=== PATIENT | female | born 1955 | race Caucasian/White ===

== ENCOUNTER 2021-03-08 14:45 | Emergency (ER) | payer OTHER ==
[~2021-03-08] VITALS: Ht 160 cm; Wt 60.8 kg
[~2021-03-08 14:45] MED LIST: Dhea Tablet1 EACH PO; ESTRIOL; Evening Primro500 M1 PO; GLUC500 PO; NAPR220 PO; VITAMIN D35000 UNIT PO; [UNRECOGNIZED DRUG - MIXTURE]; [UNRECOGNIZED DRUG - OTHER]; [UNRECOGNIZED DRUG - OTHER] PO
[2021-03-08] MEDS ORDERED: Norco 5-325 Ta1 EACH PO (17:25)
== END 2021-03-08 17:38 | disposition home or self-care (01) ==
LOC: ER 14:45
DX: S82.841A Displaced bimalleolar fracture of right lower leg, initial encounter for closed fracture (principal); Z88.7 Allergy status to serum and vaccine; Z79.899 Other long term (current) drug therapy; W19.XXXA Unspecified fall, initial encounter
CPT/HCPCS: 27810; 73560-RT; 73610; 96374; 96375; 99283-25; J2270; J2405; J3010

== ENCOUNTER 2021-03-17 06:26 | Day surgery (SDC) | payer OTHER ==
[~2021-03-17] VITALS: Ht 160 cm; Wt 61.3 kg
[~2021-03-17 06:26] MED LIST changes: +Norco 5-325 Ta1 EACH PO
[2021-03-17] MEDS ORDERED: LEVSOD25 PO (07:08)
== END 2021-03-17 10:23 | disposition home or self-care (01) ==
LOC: ORSCSDS 06:26
PROVIDERS: Orthopaedic Surgery
PROC: 0QSJ04Z Reposition Right Fibula with Internal Fixation Device, Open Approach (ICD-10-PCS; principal; 2021-03-17 07:30)
DX: S82.61XA Displaced fracture of lateral malleolus of right fibula, initial encounter for closed fracture (principal); E03.9 Hypothyroidism, unspecified; Z79.899 Other long term (current) drug therapy; E80.4 Gilbert syndrome
CPT/HCPCS: A9270; C1713; J1100; J2250; J2370; J2405; J2704; J3010; J3370; J7120